=== PATIENT | female | born 1990 | race Hispanic/Latino ===

== ENCOUNTER 2023-07-10 14:51 | Emergency (ER) | payer OTHER ==
[~2023-07-10] VITALS: Ht 160 cm; Wt 97.1 kg
[2023-07-10] MEDS ORDERED: ONDANSETRON ODT8 MG PO (20:54)
[2023-07-10] MEDS ORDERED: PERCOCET 5-3251 EACH PO (20:54)
[2023-07-10 21:46] VITALS: BP 161/96
--- OUTSIDE RECORDS SUMMARY | 2023-07-10 21:51 | XMS ---
PreManage Notification: VISHAL LORENZANA Security Infant Caregiver Events No recent Security Events currently on file CRITERIA MET - [facility] [place] - 2 Visits in 30 Days CARE PROVIDERS -, Robert- Dentist: Crm Coordinator [facility] PHONE: [phone] LUIS ALBERT Physician Nephrology Nurse Current PHONE: Unknown Blu has no Care Guidelines for this patient. EMary VISIT COUNT (12 MO.) [address] [place] [address] TOTAL 2 NOTE: Visits indicate total known visits. ED/UCC VISIT TRACKING (12 MO.) 07/10/2023 15:01 [facility] [place] TYPE: Emergency COMPLAINT: - RT ANKLE INJURY 07/10/2023 05:11 [facility] [place] TYPE: Emergency DIAGNOSES: - Sprain of unspecified ligament of right ankle, initial encounter - r ankle injury INPATIENT VISIT TRACKING (12 MO.) No inpatient visits to display in this time frame [email or web address]
== END 2023-07-10 21:23 | disposition home or self-care (01) ==
LOC: ED 14:51
DX: S82.891A Other fracture of right lower leg, initial encounter for closed fracture (principal); X50.1XXA Overexertion from prolonged static or awkward postures, initial encounter
CPT/HCPCS: 73700; 96372; 99283-25; A9270; J1170